=== PATIENT | female | born 1955 ===

== ENCOUNTER → 2023-02-06 15:37 | Outpatient (CLI) | payer MEDICARE, SELFPAY ==
--- NOTE | 2023-02-06 15:43 | DI.RAD.S_ITS ---
PROCEDURE: XR CHEST 2V INDICATIONS: cough TECHNIQUE: 2 views of the chest were acquired. COMPARISON: None. FINDINGS: Surgical changes and devices: None. Lungs and pleura: Lungs are clear. No pleural effusions or pneumothorax. Mediastinum: Mediastinal contours are normal. Heart size is normal. Bones and chest wall: No suspicious bony abnormalities. Soft tissues appear unremarkable. IMPRESSION: No acute cardiopulmonary abnormality is seen. Dictated by: Oral Rodriguez M.D. on 02/06/2023 at 16:30 Approved by: Oral Rodriguez M.D. on 02/06/2023 at 16:30
[2023-02-06 16:38] LABS: Add Manual Diff / Slide Review NO; Basophils Absolute Auto 100 /uL (0-100); Basophils Percent Auto 1.1 % (0-2); Eosinophils Absolute Auto 300 /uL (0-450); Eosinophils Percent Auto 3.9 % (2-4); Hemoglobin 12.2 g/dL (12.0-16.0); Lymphocytes Absolute Auto 1600 /uL (1100-4500); Lymphocytes Percent Auto 18.5 % (25-40); Mean Corpuscular HGB Conc 34.9 % (30-36); Mean Corpuscular Hemoglobin 33.4 PG (26-34); Monocytes Absolute Auto 900 /uL (0-900); Monocytes Percent Auto 9.9 % (3-14); Neutrophils Absolute Auto 5800 /uL (1500-7000); Neutrophils Percent Auto 66.6 % (50-75); Platelet Count 376 X10^3/uL (150-400); Red Blood Cell Count 3.65 X10^6/uL (4.0-5.2); Red Cell Distribution Width 13.1 % (11.6-14.8); White Blood Cell Count 8.7 X10^3/uL (4.5-11.0)
[2023-02-06 17:25] LABS: Alanine Aminotransferase 15 IU/L (<35); Albumin 4.1 g/dL (3.5-5.0); Albumin Globulin Ratio 1.2 (1.0-2.8); Alkaline Phosphatase 56 U/L (38-126); Aspartate Aminotransferase 24 IU/L (14-36); BUN Creatinine Ratio 19.7 (6-22); Bilirubin Total 0.4 mg/dL (0.2-1.3); Blood Urea Nitrogen 14 mg/dL (7-17); Carbon Dioxide 28 mmol/L (22-32); Chloride 100 mmol/L (98-107); Cholesterol 179 mg/dL (140-199); Estimated Glomerular Filt Rate > 60 mL/min (>60); Globulin 3.3 g/dL (1.7-4.1); Glucose 88 mg/dL (80-110); HDL Cholesterol 58 mg/dL (40-60); HEMOLYSIS < 15 (0-50); LDL Cholesterol Calculated 106 mg/dL (<100); Potassium 4.1 mmol/L (3.4-5.1); Sodium 134 mmol/L (137-145); Total Protein 7.4 g/dL (6.3-8.2); Triglycerides 73 mg/dL (35-150)
[2023-02-07 17:25] LABS: HIV 1 & 2 Ab/Ag 4th Gen Combo NEGATIVE (NEGATIVE); Hep C Virus Ab w/Reflex Quant NEGATIVE s/c (NEGATIVE)
[2023-02-08 20:35] LABS: Tissue Transglutaminase IgG <2 U/mL (0-5)
== END ==
PROVIDERS: PCP Family Medicine; Referring Provider Family Medicine; Visit Provider Family Medicine
DX: R05.3 Chronic cough (principal); Z13.6 Encounter for screening for cardiovascular disorders; K52.9 Noninfective gastroenteritis and colitis, unspecified; Z11.59 Encounter for screening for other viral diseases; Z11.4 Encounter for screening for human immunodeficiency virus [HIV]; Z87.891 Personal history of nicotine dependence; Z00.00 Encounter for general adult medical examination without abnormal findings
CPT/HCPCS: 36415; 71046; 80053; 80061; 83516; 85025; 86803; 87389

== ENCOUNTER → 2023-02-25 16:40 | Outpatient (CLI) | payer MEDICARE, SELFPAY ==
[2023-02-25 20:03] LABS: Occult Blood 1 Negative (Negative)
[2023-02-25 20:43] LABS: Clostridium Difficile Tox PCR Negative for C. diff (Negative)
[2023-03-02 14:36] LABS: Calprotectin, Stool 29 ug/g (0-120)
== END ==
PROVIDERS: PCP Family Medicine; Referring Provider Family Medicine; Visit Provider Family Medicine
DX: K52.9 Noninfective gastroenteritis and colitis, unspecified (principal)
CPT/HCPCS: 82270; 83993; 87045; 87177; 87493; 87899

== ENCOUNTER 2024-07-17 14:30 | Outpatient (RCR) | payer MEDICARE, MEDICAID, SELFPAY ==
--- NOTE | 2024-04-10 16:56 | ST.OPIE ---
Visit Care Team Role Provider Type Neri Sepulveda MD Family Provider Physician Primary Care Provider Specialty: Family Practice Obstetrics Address: [address] [facility], [place], [address] Email: [email or web address] Almaz Ross MD Attending Provider Physician Referring Provider Specialty: [facility] Practice Address: [address] [place] [address], [place], [address] Email: [email or web address] Speech-Language Pathology Initial Evaluation DEMAND GENERATION MANAGER Adult Cognitive Linguistic Eval Start: 04/10/24 15:40 Freq: Status: Active Protocol: Document 04/10/24 15:40 SS (Rec: 04/10/24 16:55 SS [id number]) Adult Cognitive Linguistic Evaluation Session Time Visit Start Time 14:25 Visit Stop Time 15:25 Total Visit Minutes 60 Visit Information Visit Number Initial evaluation Plan of Care Dates 04/10/24-07/08/24 Insurance Information Medicare (KX after 19 PT/ST visits) Referral Referring Provider Dr. Almaz Ross Reason for Referral Aphasia s/p CVA Setting Assessment Location Outpatient Care Visit Type Note Type Initial evaluation Next Note Type Next Note Type Treatment Note Patient Information Identification Type Name Patient History Kristen Andres is a 68 year-old female referred to this clinic for assessment for expressive nad receptive language function R frontal lobe CVA. She was hospitalized from through 02/29/2024 at [facility] in [place]. MRI reportedly showed a significant stroke with clot present per medical records. She was reportedly not very engaged with therapies and ultimately was discharged home with her , Tommy. Prior to the stroke, Kristen was highly independent with ADLs and IADLs and was involved in her community. 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 Though pt was diagnosed with global aphasia during hospitalization, her expressive and receptive language skills have improved over the past month per her ?s report. Minimal PMHs in records (vertigo only), though pt denies any neurological conditions or relevant medical history. Pt currently lives at home with her and is fairly independent with ADLs and has been completing IADLs with assistance/supervision from her as needed. 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 She was initially reluctant to participate, though agreeable to assessment given rationale. She participated in automatic speech and communication routines (greetings, small talk) and responded to yes/no and egocentric open-ended questions using syntactically correct structures, with occasional paraphasias, instances of anomia, and omission of words at the discourse level noted. Comprehension appeared to be a relative strength, though mild difficulty noted with more complex questions. Cognition informally assessed, with difficulty noted with sustained attention. Additionally, occasional emotional lability re: laughing noted, particularly when pt had difficulty responding during standardized assessment. Mental Status Alert,Responsive,Cooperative Informal Assessment Receptive Language Normal No Receptive Language Impairment(s) Comprehension of complex yes/ no questions,Following 3-step commands,Reading comprehension ,Comprehension of conversation ,Reading Expressive Language Normal No Expressive Language Impairment(s) Sentence closure/completion, Confrontation naming,Divergent naming,Expression of complex thoughts/ideas,Written expression Pragmatic Language Normal Yes Speech Normal Yes Cognition Normal No: Language function prioritized given support at home Cognitive Impairment(s) Attention,Short-term memory, Executive functioning,Problem solving,Thought organization, Safety awareness Formal Assessment Administration Complete Results Pt completed The Western Aphasia Battery-Revised (WAB-R ). The WAB-R aims to determine the presence, severity, and type of aphasia. Additionally, it aims to provide a comprehensive assessment of the pt?s language strengths and deficits in order to guide treatment and management. The WAB-R is made up of four subtests, each comprising sets of items that probe different language domains, vary in difficulty, and are scored with a graded system to maximize the informativeness of each item. From the four subtests, four summary measures are derived, which constitute an Aphasia Quotient , quantifying strengths and weaknesses across core language domains. The pt scored as follows: Spontaneous Speech Score 13/20 Auditory Verbal Comprehension Score 9.2/10 Repetition Score 8.8/10 Naming and Word Finding Score 6.8/10 Aphasia Quotient 75.6/100 indicative of mild-moderate aphasia Based on the WAB-R Aphasia Classification Criteria, pt presents with anomic aphasia. Findings/Results Language Function Mild-moderately impaired Cognitive Function Mildly impaired Findings Pt presented with mild- moderate expressive aphasia c/ b anomia, semantic paraphasias , and omission of words at the discourse level. Auditory comprehension was a strength, with pt demonstrate intact comprehension of yes/no questions and 1-2 step commands; breakdown occurred with 3 step commands and more complex questions/topics. Though not formally tested today, she also demonstrates agraphia and alexia per report , though appears to be mild in severity. Pt may have possible cognitive deficits in attention and executive function, though further testing is needed. Pt would benefit from DEMAND GENERATION MANAGER services targeting expressive and receptive language skills in order to enhance her ability to effectively communicate complex thoughts, ideas, opinions, and feelings during functional activities of daily life. Concomitant Factors Concomitant Factors Other (comment) Comment Anosagnosia Prognosis Prognosis Good Plan of Care Speech-Language Treatment Yes Frequency Once a week Duration 3 months Patient/Caregiver Education Patient expressed understanding of evaluation, Patient expressed agreement with goals and treatment plans Short Term Goals 1. Patient will implement the compensatory strategy of circumlocution in 80% of opportunities with minimal cueing to repair communication breakdowns in daily conversations. 2. Patient will produce 7 or more content words per utterance (as compared to baseline of 3) through skill and strategy practice in 80% of opportunities during functional conversation in order to enhance communicative effectiveness and confidence. 3. Patient will correctly name salient object in 80% of opportunities with minimal assistance in order to increase functional word retrieval in daily communication . Student Life Vice President Goals 1. The patient will participate in complex communication of thoughts, ideas, and opinions while utilizing compensatory strategies independently when appropriate across three sessions in order to effectively participate in daily activities. 2. The patient will demonstrate improved satisfaction with communication (baseline status self-rating +7/10) as a result of activity practice and personalized strategy development in speech therapy.
--- NOTE | 2024-04-10 16:57 | ST.OPPOC ---
Physical, Occupational & Speech Therapy At [facility] Visit Care Team Role Provider Type Neri Sepulveda MD Family Provider Physician Primary Care Provider Address: [address] [place], [address] Almaz Ross MD Attending Provider Physician Referring Provider Address: [address] [place] [address] B, [place], [address] Speech Pathology Plan of Care Plan of Care Dates 04/10/24-07/08/[address] Almaz Ross Patient History Kristen Andres is a 68 year-old female referred to this clinic for assessment for expressive nad receptive language function R frontal lobe CVA. She was hospitalized from 02/26/2024 through at [facility] in [place]. MRI reportedly showed a significant stroke with clot present per medical records. She was reportedly not very engaged with therapies and ultimately was discharged home with her , Tommy. Prior to the stroke, Kristen was highly independent with ADLs and IADLs and was involved in her community. 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 Though pt was diagnosed with global aphasia during hospitalization, her expressive and receptive language skills have improved over the past month per her ?s report. Minimal PMHs in records (vertigo only), though pt denies any neurological conditions or relevant medical history. Pt currently lives at home with her and is fairly independent with ADLs and has been completing IADLs with assistance/supervision from her as needed. Short Term Goals 1. Patient will implement the compensatory strategy of circumlocution in 80% of opportunities with minimal cueing to repair communication breakdowns in daily conversations. 2. Patient will produce 7 or more content words per utterance (as compared to baseline of 3) through skill and strategy practice in 80% of opportunities during functional conversation in order to enhance communicative effectiveness and confidence. 3. Patient will correctly name salient object in 80% of opportunities with minimal assistance in order to increase functional word retrieval in daily communication . Mortgage Analyst Goals 1. The patient will participate in complex communication of thoughts, ideas, and opinions while utilizing compensatory strategies independently when appropriate across three sessions in order to effectively participate in daily activities. 2. The patient will demonstrate improved satisfaction with communication (baseline status self-rating +7/10) as a result of activity practice and personalized strategy development in speech therapy. Comment: Electronically Signed by: CHICA Callahan 04/10/24 8138 If you are in agreement with this Plan of Care, please return a signed and dated copy. I have reviewed this Plan of Care and certify that the skilled therapy services above are required to meet the patient?s needs. Physician Signature Date Printed Name and Credentials Clinical Instructor Signature Printed Name and Credentials
--- NOTE | 2024-04-17 16:38 | ST.OPTN ---
Visit Care Team Role Provider Type Neri Sepulveda MD Family Provider Physician Primary Care Provider Address: [address] [place] [address], [address] Almaz Ross MD Attending Provider Physician Referring Provider Address: [address] [place] [address], [facility], [place], [address] SHELL SORTER Treatment Note SHELL SORTER Treatment Note Start: 04/10/24 15:40 Freq: Status: Active Protocol: Document 04/17/24 16:28 SS (Rec: 04/17/24 16:38 SS [id number]) Speech Pathology Treatment Note Session Time Visit Start Time 15:40 Visit Stop Time 16:30 Total Visit Minutes 50 Visit Information Visit Number 2 Plan of Care Dates 04/10/24-07/08/24 Insurance Information Medicare Setting Treatment Setting Outpatient Care Visit Type Note Type Treatment Note Next Note Type Next Note Type Treatment Note General Information Patient History Kristen Andres is a 68 year-old female referred to this clinic for assessment for expressive nad receptive language function R frontal lobe CVA. She was hospitalized from through 02/29/2024 at [facility] in [place]. MRI reportedly showed a significant stroke with clot present per medical records. She was reportedly not very engaged with therapies and ultimately was discharged home with her , Tommy. Prior to the stroke, Kristen was highly independent with ADLs and IADLs and was involved in her community. 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 Though pt was diagnosed with global aphasia during hospitalization, her expressive and receptive language skills have improved over the past month per her ?s report. Minimal PMHs in records (vertigo only), though pt denies any neurological conditions or relevant medical history. Stefano currently lives at home with her and is fairly independent with ADLs and has been completing IADLs with assistance/supervision from her as needed. Subjective Observations/Patient Presentation Kristen arrived to the session on time and was accompanied by her . She was engaged and motivated to participate in all session activities. Objective Short Term Goals 1. Patient will implement the compensatory strategy of circumlocution in 80% of opportunities with minimal cueing to repair communication breakdowns in daily conversations. 2. Patient will produce 7 or more content words per utterance (as compared to baseline of 3) through skill and strategy practice in 80% of opportunities during functional conversation in order to enhance communicative effectiveness and confidence. 3. Patient will correctly name salient object in 80% of opportunities with minimal assistance in order to increase functional word retrieval in daily communication . Snf Goals 1. The patient will participate in complex communication of thoughts, ideas, and opinions while utilizing compensatory strategies independently when appropriate across three sessions in order to effectively participate in daily activities. 2. The patient will demonstrate improved satisfaction with communication (baseline status self-rating +7/10) as a result of activity practice and personalized strategy development in speech therapy. Treatment Activities Introduced Semantic Feature Analysis to strengthen semantic networks and enhance pt's word retrieval. Additionally, implemented Response Elaboration Training targeting use of expanded utterances in order to improve communication effectiveness. Assessment Patient Response to Treatment Good Rehab Potential Good Impairments Identified Expressive language Progress Towards Goals Good Progress Assessment of Overall Progress Improving Assessment of Improvement Discussed functional communication since evaluation date. Pt?s reported that he has noticed steady improvement in word retrieval and verbal expression. He was highly supportive of Kristen during the session and was receptive to SHELL SORTER education and recommendations. Semantic Feature Analysis (SFA ) implemented to target anomia and use of circumlocution for improved word retrieval. The pt was provided with a visual graphic organizer with six categories (category/group, use, action, properties, location, and association) and was asked to generate words across the six categories for personally-relevant, functional words. She produced an average of 8 content words per target photo, increasing to 15+ words given semantic, phonemic, and gestural cueing. During naming tasks with picture card stimuli, pt accurately named 31/40 (77%) of words. She benefited from hierarchy of cueing, semantic cueing (category, use, location, physical attributes) , phonemic cueing, and orthographic cueing. She was able to accurately name 38/40 words given semantic and phonemic cueing, increasing to 40/40 given orthographic cueing (SHELL SORTER writing first syllable on whiteboard and cueing pt to read it aloud). Targeted verbal expression, content word retrieval, and response length with implementation of Response Elaboration Training (RET) in order to support generalization of expanded utterances across contexts and conversational partners. With open-ended picture stimuli, Kristen formed sentences with an average of 5 content words. SHELL SORTER implemented wh-questions ( ex: who, what, where, when) with the goal of improving response length and the pt increased to an average of 10+ content words. She benefited from SHELL SORTER shaping and modeling, as well as positive reinforcement during the task to improve verbal responses. Discussed progress with pt and spouse as well as recommended strategies for home at end of the session. Plan to follow- up in one week. Reviewed with Patient Goals,Progress Being Made,Home Exercise Program Patient/Caregiver Understanding Excellent Plan Amount of Therapy Recommended 3 Months Frequency of Treatment Once a Week Length of Session 30 Minutes Therapeutic Contents Client Education,Expressive Language Training,Fluency,Home Exercise Program Provided Patient/Caregiver Instruction Home Exercise Program,Plan of Care,Questions/Concerns Therapy Recommendations Continue with Current Program
--- NOTE | 2024-04-24 17:23 | ST.OPTN ---
Visit Care Team Role Provider Type Neri Sepulveda MD Family Provider Physician Primary Care Provider Address: [address] [place] [address], [id number] Almaz Ross MD Attending Provider Physician Referring Provider Address: [address] [place] [address], [facility], [place], [address] BILINGUAL INSTRUCTOR Treatment Note BILINGUAL INSTRUCTOR Treatment Note Start: 04/10/24 15:40 Freq: Status: Active Protocol: Document 04/24/24 17:11 SS (Rec: 04/24/24 17:23 SS [id number]) Speech Pathology Treatment Note Session Time Visit Start Time 16:05 Visit Stop Time 16:55 Total Visit Minutes 50 Visit Information Visit Number 3 Plan of Care Dates 04/10/24-07/08/24 Insurance Information Medicare Setting Treatment Setting Outpatient Care Visit Type Note Type Treatment Note Next Note Type Next Note Type Treatment Note General Information Patient History Kristen Andres is a 68 year-old female referred to this clinic for assessment for expressive nad receptive language function R frontal lobe CVA. She was hospitalized from through 02/29/2024 at [facility] in [place]. MRI reportedly showed a significant stroke with clot present per medical records. She was reportedly not very engaged with therapies and ultimately was discharged home with her , Tommy. Prior to the stroke, Kristen was highly independent with ADLs and IADLs and was involved in her community. 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 Though pt was diagnosed with global aphasia during hospitalization, her expressive and receptive language skills have improved over the past month per her ?s report. Minimal PMHs in records (vertigo only), though pt denies any neurological conditions or relevant medical history. Stefano currently lives at home with her and is fairly independent with ADLs and has been completing IADLs with assistance/supervision from her as needed. Subjective Observations/Patient Presentation Kristen arrived to the session on time and was accompanied by her sister. She was engaged and motivated to participate in all session activities. Objective Short Term Goals 1. Patient will implement the compensatory strategy of circumlocution in 80% of opportunities with minimal cueing to repair communication breakdowns in daily conversations. 2. Patient will produce 7 or more content words per utterance (as compared to baseline of 3) through skill and strategy practice in 80% of opportunities during functional conversation in order to enhance communicative effectiveness and confidence. 3. Patient will correctly name salient object in 80% of opportunities with minimal assistance in order to increase functional word retirval in daily communication . Rubber Vulcanizing Machine Operator Goals 1. The patient will participate in complex communication of thoughts, ideas, and opinions while utilizing compensatory strategies independnetly when appropriate across three sessions in order to effectively participate in daily activities. 2. The patient will demonstrate improved satisfaction with communication (baseline status self-rating +7/10) as a result of activity practice and personalized strategy development in speech therapy. Treatment Activities Implemented Semantic Feature Analysis to strengthen semantic networks and enhance pt's word retrieval. Additionally, implemented use of compensatory word-finding strategies during unstructured conversation in order to target verbal expression and word retrieval across a variety of contexts and communication partners. Assessment Patient Response to Treatment Good Rehab Potential Good Impairments Identified Expressive language Progress Towards Goals Good Progress Assessment of Overall Progress Improving Assessment of Improvement Pt?s sister reported concerns re: cognition, specifically memory, though stated pt is not willing to discuss this at this time. Pt?s family may be pursuing further assessment. BILINGUAL INSTRUCTOR discussed these concerns with pt and explained that changes in cognitive- communication function may be related to CVA, though pt became withdrawn and politely stated she did not wish to discuss these concerns. Semantic Feature Analysis (SFA ) implemented to target anomia and use of circumlocution for improved word retrieval. The pt was provided with a visual graphic organizer with six categories (category/group, use, action, properties, location, and association) and was asked to generate words across the six categories for personally-relevant, functional words. She produced an average of 13 content words per target photo, increasing to 2-+ words given semantic, phonemic, and orthographic cueing. Given initial prompt, she was able to provide a succinct and effective description of each target word using semantic features in 9/12 opportunities , increasing to 12/12 given reminder to use semantic features she had previously identified. During unstructured conversation, she was able to discuss various topics (e.g., hobbies, family, etc) with relative fluency. She demonstrated occasional hesitations, fillers, and generic words during moments of anomia, though was able to use similar/related words and circumlocution given initial reminder from BILINGUAL INSTRUCTOR. She is not yet independently utilizing trained strategies and requires min cueing to initiate use. She will benefit from reinforcement to independently use strategies in functional contexts to increase communication effectiveness and minimize communication breakdowns. Discussed progress with pt and sister as well as recommended strategies for home at end of the session. Plan to follow- up in one week. Reviewed with Patient Goals,Progress Being Made,Home Exercise Program Patient/Caregiver Understanding Excellent Plan Amount of Therapy Recommended 3 Months Frequency of Treatment Once a Week Length of Session 30 Minutes Therapeutic Contents Client Education,Expressive Language Training,Fluency,Home Exercise Program Provided Patient/Caregiver Instruction Home Exercise Program,Plan of Care,Questions/Concerns Therapy Recommendations Continue with Current Program
--- NOTE | 2024-05-01 16:10 | ST.OPTN ---
Visit Care Team Role Provider Type Neri Sepulveda MD Family Provider Physician Primary Care Provider Address: [address] [place] [address], [id number] Almaz Ross MD Attending Provider Physician Referring Provider Address: [address] [place] [address] B, [place], [address] CAR DELIVERER Treatment Note CAR DELIVERER Treatment Note Start: 04/10/24 15:40 Freq: Status: Active Protocol: Document 05/01/24 15:57 SS (Rec: 05/01/24 16:10 SS [id number]) Speech Pathology Treatment Note Session Time Visit Start Time 14:20 Visit Stop Time 15:00 Total Visit Minutes 40 Visit Information Visit Number 4 Plan of Care Dates 04/10/24-07/08/24 Insurance Information Medicare Setting Treatment Setting Outpatient Care Visit Type Note Type Treatment Note Next Note Type Next Note Type Treatment Note General Information Patient History Kristen Andres is a 68 year-old female referred to this clinic for assessment for expressive nad receptive language function R frontal lobe CVA. She was hospitalized from through 02/29/2024 at [facility] in [place]. MRI reportedly showed a significant stroke with clot present per medical records. She was reportedly not very engaged with therapies and ultimately was discharged home with her , Tommy. Prior to the stroke, Kristen was highly independent with ADLs and IADLs and was involved in her community. 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 Though pt was diagnosed with global aphasia during hospitalization, her expressive and receptive language skills have improved over the past month per her ?s report. Minimal PMHs in records (vertigo only), though pt denies any neurological conditions or relevant medical history. Stefano currently lives at home with her and is fairly independent with ADLs and has been completing IADLs with assistance/supervision from her as needed. Subjective Observations/Patient Presentation Kristen arrived to the session on time and was accompanied by her . She was engaged and motivated to participate in all session activities. Objective Short Term Goals 1. Patient will implement the compensatory strategy of circumlocution in 80% of opportunities with minimal cueing to repair communication breakdowns in daily conversations. 2. Patient will produce 7 or more content words per utterance (as compared to baseline of 3) through skill and strategy practice in 80% of opportunities during functional conversation in order to enhance communicative effectiveness and confidence. 3. Patient will correctly name salient object in 80% of opportunities with minimal assistance in order to increase functional word retrieval in daily communication . [facility] Goals 1. The patient will participate in complex communication of thoughts, ideas, and opinions while utilizing compensatory strategies independently when appropriate across three sessions in order to effectively participate in daily activities. 2. The patient will demonstrate improved satisfaction with communication (baseline status self-rating +7/10) as a result of activity practice and personalized strategy development in speech therapy. Treatment Activities Implemented modified Semantic Feature Analysis to strengthen semantic networks and enhance pt's word retrieval with use of visual aid as a reference. Additionally, implemented use of wh-questions during structured photo description task and in unstructured conversation targeting increased grammatical complexity given overall reduced utterance length. Assessment Patient Response to Treatment Good Rehab Potential Good Impairments Identified Expressive language Progress Towards Goals Good Progress Assessment of Overall Progress Improving Assessment of Improvement Continued to implement SFA principles and circumlocution across word finding in structured naming task. Provided pt with a written structured task re: given an object, pt verbalize various characteristics (color, size, material, category, function, where it?s found, similar items, parts, first sound). Pt needed min cues to refer to written support to verbalize semantic features. She produced an average of 6 content words per target photo , increasing to 10+ words given semantic, phonemic, and orthographic cueing. She named 16/20 (80%) of objects accurately, increasing to 20/ 20 (100%) given semantic, phonemic, and occasional orthographic cueing. Targeted verbal expression, content word retrieval, and response length with implementation of Response Elaboration Training (RET) with open-ended picture stimuli. She formed sentences with an average of x5 content words. CAR DELIVERER implemented wh- questions (ex: who, what, where, when) with the goal of improving response length and the patient increased to an average of x15+ content words. In conversation, she benefited from cueing to utilize circumlocution (e.g., ?use a similar/related word? or ?can you tell me about it?? ). She also benefited from use of wh-questions intermittently to increased response length and produce longer and more complex utterances. She is not yet independently utilizing word-finding strategies or producing longer and more complex utterances and benefits from cueing, though is able to use strategies effectively given cueing from CAR DELIVERER and . As her awareness of her deficits continues to increase , she has benefited from frequent positive encouragement and discussion of her progress. Discussed progress with pt and and provided home practice at end of the session. Reviewed with Patient Goals,Progress Being Made,Home Exercise Program Patient/Caregiver Understanding Excellent Plan Amount of Therapy Recommended 3 Months Frequency of Treatment Once a Week Length of Session 30 Minutes Therapeutic Contents Client Education,Expressive Language Training,Fluency,Home Exercise Program Provided Patient/Caregiver Instruction Home Exercise Program,Plan of Care,Questions/Concerns Therapy Recommendations Continue with Current Program
--- NOTE | 2024-05-08 16:48 | ST.OPTN ---
Visit Care Team Role Provider Type Neri Sepulveda MD Family Provider Physician Primary Care Provider Address: [address] [place] [address], [id number] Almaz Ross MD Attending Provider Physician Referring Provider Address: [address] [place] [address] B, [place], [address] DELIVERY PERSON Treatment Note DELIVERY PERSON Treatment Note Start: 04/10/24 15:40 Freq: Status: Active Protocol: Document 05/08/24 16:16 SS (Rec: 05/08/24 16:48 SS [id number]) Speech Pathology Treatment Note Session Time Visit Start Time 14:10 Visit Stop Time 14:50 Total Visit Minutes 40 Visit Information Visit Number 5 Plan of Care Dates 04/10/24-07/08/24 Insurance Information Medicare Setting Treatment Setting Outpatient Care Visit Type Note Type Treatment Note Next Note Type Next Note Type Treatment Note General Information Patient History Kristen Andres is a 68 year-old female referred to this clinic for assessment for expressive nad receptive language function R frontal lobe CVA. She was hospitalized from through 02/29/2024 at [facility] in [place]. MRI reportedly showed a significant stroke with clot present per medical records. She was reportedly not very engaged with therapies and ultimately was discharged home with her , Tommy. Prior to the stroke, Kristen was highly independent with ADLs and IADLs and was involved in her community. 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 Though pt was diagnosed with global aphasia during hospitalization, her expressive and receptive language skills have improved over the past month per her ?s report. Minimal PMHs in records (vertigo only), though pt denies any neurological conditions or relevant medical history. Stefano currently lives at home with her and is fairly independent with ADLs and has been completing IADLs with assistance/supervision from her as needed. Subjective Observations/Patient Presentation Kristen arrived to the session on time and was accompanied by her . She was engaged and motivated to participate in all session activities. Objective Short Term Goals 1. Patient will implement the compensatory strategy of circumlocution in 80% of opportunities with minimal cueing to repair communication breakdowns in daily conversations. 2. Patient will produce 7 or more content words per utterance (as compared to baseline of 3) through skill and strategy practice in 80% of opportunities during functional conversation in order to enhance commuicative effecitvness and confidance. 3. Patient will correctly name salient object in 80% of opportunities with minimal assistance in order to increase functional word retirval in daily communication . Material Control Supervisor Goals 1. The patient will participate in complex communication of thoughts, ideas, and opinions while utilizing compensatory strategies independnetly when appropriate across three sessions in order to effectively participate in daily activities. 2. The patient will demonstrate improved satisfaction with communication (baseline status self-rating +7/10) as a result of activity practice and personalized strategy development in speech therapy. Treatment Activities Implemented modified Semantic Feature Analysis to strengthen semantic networks and enhance pt's word retrieval. Introduced use of carrier phrases and category sheet to scaffold task. Assessment Patient Response to Treatment Good Rehab Potential Good Impairments Identified Expressive language Progress Towards Goals Good Progress Assessment of Overall Progress Improving Assessment of Improvement Pt?s reported that he is having new concerns about pt?s memory in the last week or two. They have an appointment with her PCP next month. Discussed DELIVERY PERSON role in cognitive-communication, though plan to continue to focus on expressive and receptive language as it seems that potential memory difficulties that is describing have to do with reduced receptive language skills rather than cognition. Informally, pt seems to have good recall of details from prior sessions. Will continue to monitor concerns in following sessions and re- assess as needed. Provided education re: compensatory strategies that pt?s can implement given pt?s limited awareness of her communication challenges, including using simple and straight forward language, providing main idea first, asking yes/no questions rather than open-ended questions, giving pt time to respond, and cueing pt to use alternative strategies. Modeled use of strategies throughout the session with expressing understanding. May implement Conversation Partner Training and Conversational Coaching in following sessions if pt and are receptive. Continued to implement SFA principles and circumlocution across word finding in structured naming task. Initiated use of two visual aids today: 1) Carrier phrases , such as ?it?s a type of _?, ?You can find it at _?, and ? you can/it can?. 2) Categories visual chart. Pt was able to describe items with at least two descriptors in 60% of opportunities independently. For 3 descriptors, she was able to do so with 23% accuracy independently. Accuracy increased with DELIVERY PERSON providing semantic, phonemic, and orthographic cueing as well as use of gestures. Pt benefitted from use of categories visual chart today to help identify categories as she had significant difficulty identifying categories and was unable to produce names of categories without mod-max cueing. Kristen seemed to have more difficulty today with word- finding and required increased cueing, though has a cold, which may contribute to her performance. She also demonstrated limited awareness when she was having difficulty during tasks and did not attempt to continue attempting to find words as she had done in prior sessions . Discussed progress with pt and and provided home practice at end of the session . Reviewed with Patient Goals,Progress Being Made,Home Exercise Program Patient/Caregiver Understanding Excellent Plan Amount of Therapy Recommended 3 Months Frequency of Treatment Once a Week Length of Session 30 Minutes Therapeutic Contents Client Education,Expressive Language Training,Fluency,Home Exercise Program Provided Patient/Caregiver Instruction Home Exercise Program,Plan of Care,Questions/Concerns Therapy Recommendations Continue with Current Program
--- NOTE | 2024-05-15 17:18 | ST.OPTN ---
Visit Care Team Role Provider Type Neri Sepulveda MD Family Provider Physician Primary Care Provider Address: [address] [place] [address], [id number] Almaz Ross MD Attending Provider Physician Referring Provider Address: [address] [place] [address], [facility] [place] [facility], [place], [address] WAGE HAND Treatment Note WAGE HAND Treatment Note Start: 04/10/24 15:40 Freq: Status: Active Protocol: Document 05/15/24 17:06 SS (Rec: 05/15/24 17:18 SS [id number]) Speech Pathology Treatment Note Session Time Visit Start Time 14:32 Visit Stop Time 15:10 Total Visit Minutes 38 Visit Information Visit Number 6 Plan of Care Dates 04/10/24-07/08/24 Insurance Information Medicare Setting Treatment Setting Outpatient Care Visit Type Note Type Treatment Note Next Note Type Next Note Type Treatment Note General Information Patient History Kristen Andres is a 68 year-old female referred to this clinic for assessment for expressive nad receptive language function R frontal lobe CVA. She was hospitalized from through 02/29/2024 at [facility] in [place]. MRI reportedly showed a significant stroke with clot present per medical records. She was reportedly not very engaged with therapies and ultimately was discharged home with her , Tommy. Prior to the stroke, Kristen was highly independent with ADLs and IADLs and was involved in her community. 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 Though pt was diagnosed with global aphasia during hospitalization, her expressive and receptive language skills have improved over the past month per her ?s report. Minimal PMHs in records (vertigo only), though pt denies any neurological conditions or relevant medical history. Stefano currently lives at home with her and is fairly independent with ADLs and has been completing IADLs with assistance/supervision from her as needed. Subjective Observations/Patient Presentation Kristen arrived to the session on time and was accompnied by her . She was engaged and motivated to participate in all session activities. Objective Short Term Goals 1. Patient will implement the compensatory strategy of circumlocution in 80% of opportunities with minimal cueing to repair communication breakdowns in daily conversations. 2. Patient will produce 7 or more content words per utterance (as compared to baseline of 3) through skill and strategy practice in 80% of opportunities during functional conversation in order to enhance commuicative effecitvness and confidance. 3. Patient will correctly name salient object in 80% of opportunities with minimal assistance in order to increase functional word retirval in daily communication . Nursing Home Goals 1. The patient will participate in complex communication of thoughts, ideas, and opinions while utilizing compensatory strategies independnetly when appropriate across three sessions in order to effectively participate in daily activities. 2. The patient will demonstrate improved satisfaction with communication (baseline status self-rating +7/10) as a result of activity practice and personalized strategy development in speech therapy. Treatment Activities Implemented modified Semantic Feature Analysis to in order to strengthen semantic connections between related concepts. By generating words and phrases that are related to the target word and increasing activation of the entire surrounding semantic network, the pt is more likely to be able to access and produce target words with reduced instances of anomia. Continued use of written carrier phrases and category sheet to scaffold task. Assessment Patient Response to Treatment Good Rehab Potential Good Impairments Identified Expressive language Progress Towards Goals Good Progress Assessment of Overall Progress Improving Assessment of Improvement Continued to implement SFA principles and circumlocution across word finding in structured naming task. Continued use of visual aid for carrier phrases and categories visual chart. Pt produced an average of 4 content words per target word across 6 trials, increasing to average of 14 content words given min-mod semantic, phonemic, orthographic, and gestural cueing. Pt continued to benefit from use of categories visual chart today to help identify categories as she had significant difficulty identifying categories (i.e., repeating the target word rather than producing the overall category ). Additionally, she benefitted from cueing to produce properties today and befitted from written cueing ( e.g., ?what does it look like? ?, ?what is it made out of??, etc) as well multiple choice. She was more engaged with this task today. Her reported that her anosognosia (limited awareness of her deficits) limits practice at home as she is not always interested in implementing strategies at home with ?s cueing. Discussed hierarchy of cueing for word- finding that will allow pt?s to provide appropriate cueing and fade it as needed while allowing pt to be as independent as possible and maintain communicative confidence. Discussed progress with pt and and provided home practice at end of the session. Plan to continue at frequency of once a week given pt progress and report. Reviewed with Patient Goals,Progress Being Made,Home Exercise Program Patient/Caregiver Understanding Excellent Plan Amount of Therapy Recommended 3 Months Frequency of Treatment Once a Week Length of Session 30 Minutes Therapeutic Contents Client Education,Expressive Language Training,Fluency,Home Exercise Program Provided Patient/Caregiver Instruction Home Exercise Program,Plan of Care,Questions/Concerns Therapy Recommendations Continue with Current Program
--- NOTE | 2024-05-22 16:59 | ST.OPTN ---
Visit Care Team Role Provider Type Neri Sepulveda MD Family Provider Physician Primary Care Provider Address: [address] [place] [address], [id number] Almaz Ross MD Attending Provider Physician Referring Provider Address: [address] [place] [address], [facility], [place], [address] PATIENT FINANCIAL ADVOCATE Treatment Note PATIENT FINANCIAL ADVOCATE Treatment Note Start: 04/10/24 15:40 Freq: Status: Active Protocol: Document 05/22/24 16:15 SS (Rec: 05/22/24 16:15 SS [id number]) Speech Pathology Treatment Note Session Time Visit Start Time 14:30 Visit Stop Time 15:07 Total Visit Minutes 37 Visit Information Visit Number 7 Plan of Care Dates 04/10/24-07/08/24 Insurance Information Medicare Setting Treatment Setting Outpatient Care Visit Type Note Type Treatment Note Next Note Type Next Note Type Treatment Note General Information Patient History Kristen Andres is a 68 year-old female referred to this clinic for assessment for expressive nad receptive language function R frontal lobe CVA. She was hospitalized from through 02/29/2024 at [facility] in [place]. MRI reportedly showed a significant stroke with clot present per medical records. She was reportedly not very engaged with therapies and ultimately was discharged home with her , Tommy. Prior to the stroke, Kristen was highly independent with ADLs and IADLs and was involved in her community. 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 Though pt was diagnosed with global aphasia during hospitalization, her expressive and receptive language skills have improved over the past month per her ?s report. Minimal PMHs in records (vertigo only), though pt denies any neurological conditions or relevant medical history. Stefano currently lives at home with her and is fairly independent with ADLs and has been completing IADLs with assistance/supervision from her as needed. Subjective Observations/Patient Presentation Kristen arrived to the session on time and was accompnied by her . She was engaged and motivated to participate in all session activities. Objective Short Term Goals 1. Patient will implement the compensatory strategy of circumlocution in 80% of opportunities with minimal cueing to repair communication breakdowns in daily conversations. 2. Patient will produce 7 or more content words per utterance (as compared to baseline of 3) through skill and strategy practice in 80% of opportunities during functional conversation in order to enhance commuicative effecitvness and confidance. 3. Patient will correctly name salient object in 80% of opportunities with minimal assistance in order to increase functional word retirval in daily communication . [facility] Goals 1. The patient will participate in complex communication of thoughts, ideas, and opinions while utilizing compensatory strategies independnetly when appropriate across three sessions in order to effectively participate in daily activities. 2. The patient will demonstrate improved satisfaction with communication (baseline status self-rating +7/10) as a result of activity practice and personalized strategy development in speech therapy. Treatment Activities Continued to implement modified Semantic Feature Analysis to in order to strengthen semantic connections between related concepts. By generating words and phrases that are related to the target word and increasing activation of the entire surrounding semantic network, the pt is more likely to be able to access and produce target words with reduced instances of anomia. Continued use of written carrier phrases and category sheet to scaffold task. Continued to implement circumlocution in conversation when pt demonstrated instances of anomia. Assessment Patient Response to Treatment Good Rehab Potential Good Impairments Identified Expressive language Progress Towards Goals Good Progress Assessment of Overall Progress Improving Assessment of Improvement Pt?s reported that they have been utilizing principles of SFA at home to describe everyday objects and he has noticed an increased ability in pt naming and describing items that she previously had difficulty with . He continues to be concerned about her memory. He reported that pt did not recognize one of her sons until she heard his voice, which is unusual for her. Pt and family agreeable to focus on expressive language for now as it is most pertinent for her quality of life. Pt is scheduled to see PCP re: these concerns next month. Referral to neurology may be recommended at that time given pt presentation. Continued to implement SFA principles and circumlocution across word finding in structured naming task. Continued use of visual aid for carrier phrases and categories visual chart. Pt produced an average of 5-6 content words per target word across 6 trials, increasing to average of 15+ content words given mod-max semantic, phonemic, orthographic, and phrase completion. Pt benefited from use of categories visual chart, phrase completion, and antonyms. In conversation, she demonstrated frequent instances of anomia and required consistent cueing from PATIENT FINANCIAL ADVOCATE or to describe target word. She benefited from frequent positive encouragement as she continues to have difficulty with anosognosia and does not persistently attempt to find the correct word by herself. Discussed progress with pt and and provided home practice at end of the session . Plan to continue at frequency of once a week given pt progress and report with treatment potentially including memory strategies if pt and would like to begin addressing these areas of concern. Reviewed with Patient Goals,Progress Being Made,Home Exercise Program Patient/Caregiver Understanding Excellent Plan Amount of Therapy Recommended 3 Months Frequency of Treatment Once a Week Length of Session 30 Minutes Therapeutic Contents Client Education,Expressive Language Training,Fluency,Home Exercise Program Provided Patient/Caregiver Instruction Home Exercise Program,Plan of Care,Questions/Concerns Therapy Recommendations Continue with Current Program
--- NOTE | 2024-05-29 16:15 | ST.OPTN ---
Visit Care Team Role Provider Type Neri Sepulveda MD Family Provider Physician Primary Care Provider Address: [address] [place] [address], [id number] Almaz Ross MD Attending Provider Physician Referring Provider Address: [address] [place] [address], [facility], [place], [address] HELP DESK ASSOCIATE Treatment Note HELP DESK ASSOCIATE Treatment Note Start: 04/10/24 15:40 Freq: Status: Active Protocol: Document 05/29/24 16:06 SS (Rec: 05/29/24 16:15 SS [id number]) Speech Pathology Treatment Note Session Time Visit Start Time 14:25 Visit Stop Time 15:10 Total Visit Minutes 45 Visit Information Visit Number 8 Plan of Care Dates 04/10/24-07/08/24 Insurance Information Medicare Setting Treatment Setting Outpatient Care Visit Type Note Type Treatment Note Next Note Type Next Note Type Treatment Note General Information Patient History Kristen Andres is a 68 year-old female referred to this clinic for assessment for expressive nad receptive language function R frontal lobe CVA. She was hospitalized from through 02/29/[address] [facility] in [place]. MRI reportedly showed a significant stroke with clot present per medical records. She was reportedly not very engaged with therapies and ultimately was discharged home with her , Tommy. Prior to the stroke, Kristen was highly independent with ADLs and IADLs and was involved in her community. 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 Though pt was diagnosed with global aphasia during hospitalization, her expressive and receptive language skills have improved over the past month per her ?s report. Minimal PMHs in records (vertigo only), though pt denies any neurological conditions or relevant medical history. Stefano currently lives at home with her and is fairly independent with ADLs and has been completing IADLs with assistance/supervision from her as needed. Subjective Observations/Patient Presentation Kristen arrived to the session on time and was accompnied by her . She was engaged and motivated to participate in all session activities. Objective Short Term Goals 1. Patient will implement the compensatory strategy of circumlocution in 80% of opportunities with minimal cueing to repair communication breakdowns in daily conversations. 2. Patient will produce 7 or more content words per utterance (as compared to baseline of 3) through skill and strategy practice in 80% of opportunities during functional conversation in order to enhance commuicative effecitvness and confidance. 3. Patient will correctly name salient object in 80% of opportunities with minimal assistance in order to increase functional word retirval in daily communication . [facility] Goals 1. The patient will participate in complex communication of thoughts, ideas, and opinions while utilizing compensatory strategies independnetly when appropriate across three sessions in order to effectively participate in daily activities. 2. The patient will demonstrate improved satisfaction with communication (baseline status self-rating +7/10) as a result of activity practice and personalized strategy development in speech therapy. Treatment Activities Continued SFA/description task with HELP DESK ASSOCIATE providing cues to complete. Practiced description strategy with use of visual aid for semantic features (e.g., what does it look like? Location/place, what do you use it for? Etc) and carrier phrases to scaffold task. Continued to implement circumlocution in conversation when pt demonstrated instances of anomia to promote generalization and carryover. Assessment Patient Response to Treatment Good Rehab Potential Good Impairments Identified Expressive language Progress Towards Goals Good Progress Assessment of Overall Progress Improving Assessment of Improvement During naming/description of everyday objects task, pt required mod-max verbal and phonemic cues to complete description again this session . Pt occasionally became confused by complex directions , and benefitted from use of simplified verbal instructions . Continued use of visual aid for semantic features and carrier phrases. Pt was able to name 52% of target words, increasing to 94% given mod- max cueing and reference to visual aid. Pt produced an average of 5-6 content words per target word across 6 trials, increasing to average of 15+ content words given mod -max semantic, phonemic, gesture, and phrase completion . In conversation, she demonstrated frequent instances of anomia and required consistent cueing as she tended to try to move on in the conversation without being understood fully. She continues to benefit from frequent positive encouragement and cueing hierarchy for word-finding to increase her confidence and ability to persist in finding target words despite having difficulty. Discussed progress with pt and and provided home practice at end of the session targeting use of categories and functional word-finding. Plan to continue at frequency of once a week given pt progress and report. Reviewed with Patient Goals,Progress Being Made,Home Exercise Program Patient/Caregiver Understanding Excellent Plan Amount of Therapy Recommended 3 Months Frequency of Treatment Once a Week Length of Session 30 Minutes Therapeutic Contents Client Education,Expressive Language Training,Fluency,Home Exercise Program Provided Patient/Caregiver Instruction Home Exercise Program,Plan of Care,Questions/Concerns Therapy Recommendations Continue with Current Program
--- NOTE | 2024-06-05 15:59 | ST.OPTN ---
Visit Care Team Role Provider Type Neri Sepulveda MD Family Provider Physician Primary Care Provider Address: [address] [place] [address], [id number] Almaz Ross MD Attending Provider Physician Referring Provider Address: [address] [place] [address], [facility], [place], [address] CONSUMER ATTORNEY Treatment Note CONSUMER ATTORNEY Treatment Note Start: 04/10/24 15:40 Freq: Status: Active Protocol: Document 06/05/24 15:49 SS (Rec: 06/05/24 15:59 SS [id number]) Speech Pathology Treatment Note Session Time Visit Start Time 14:20 Visit Stop Time 15:05 Total Visit Minutes 45 Visit Information Visit Number 9 Plan of Care Dates 04/10/24-07/08/24 Insurance Information Medicare Setting Treatment Setting Outpatient Care Visit Type Note Type Treatment Note Next Note Type Next Note Type Treatment Note General Information Patient History Kristen Andres is a 68 year-old female referred to this clinic for assessment for expressive nad receptive language function R frontal lobe CVA. She was hospitalized from through 02/29/2024 at [facility] in [place]. MRI reportedly showed a significant stroke with clot present per medical records. She was reportedly not very engaged with therapies and ultimately was discharged home with her , Tommy. Prior to the stroke, Kristen was highly independent with ADLs and IADLs and was involved in her community. 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 Though pt was diagnosed with global aphasia during hospitalization, her expressive and receptive language skills have improved over the past month per her ?s report. Minimal PMHs in records (vertigo only), though pt denies any neurological conditions or relevant medical history. Stefano currently lives at home with her and is fairly independent with ADLs and has been completing IADLs with assistance/supervision from her as needed. Subjective Observations/Patient Presentation Kristen arrived to the session on time and was accompnied by her , Tommy. She was engaged and motivated to participate in all session activities. Objective Short Term Goals 1. Patient will implement the compensatory strategy of circumlocution in 80% of opportunities with minimal cueing to repair communication breakdowns in daily conversations. 2. Patient will produce 7 or more content words per utterance (as compared to baseline of 3) through skill and strategy practice in 80% of opportunities during functional conversation in order to enhance commuicative effecitvness and confidance. 3. Patient will correctly name salient object in 80% of opportunities with minimal assistance in order to increase functional word retirval in daily communication . Detention Goals 1. The patient will participate in complex communication of thoughts, ideas, and opinions while utilizing compensatory strategies independnetly when appropriate across three sessions in order to effectively participate in daily activities. 2. The patient will demonstrate improved satisfaction with communication (baseline status self-rating +7/10) as a result of activity practice and personalized strategy development in speech therapy. Treatment Activities Continued SFA/description task with CONSUMER ATTORNEY providing cues to complete. Practiced description strategy with use of visual aid for semantic features (e.g., what does it look like? Location/place, what do you use it for? Etc) and carrier phrases to scaffold task. Continued to implement circumlocution and graded cueing in conversation when pt demonstrated instances of anomia to promote generalization and carryover. Assessment Patient Response to Treatment Good Rehab Potential Good Impairments Identified Expressive language Progress Towards Goals Good Progress Assessment of Overall Progress Improving Assessment of Improvement During naming/description of everyday objects task, pt required min-mod verbal and phonemic cues to utilize trained compensatory strategies. Continued use of visual aid for semantic features and carrier phrases ( e.g., ?it?s a type of __?, ? you can/it can __?, etc). Pt was able to name 75% of target words independently, increasing to 87% given cueing reference visual aid and CONSUMER ATTORNEY prompting pt to identify semantic features. Given cueing to utilize principles of SFA and phonemic cueing, pt was able to name 100% of target words. Given initial prompt and carrier phrase, she is able to produce at least 1 -2 content words per semantic feature. Of note, she briefly hesitated while naming some of the words, though was able to cue herself with use of circumlocution (e.g., ?it?s a drink. It?s lemony. Oh it?s a lemonade?). In conversation, she demonstrated occasional instances of anomia with content words, though had the most difficulty with names and numbers. She benefited from semantic and phonemic cueing to retrieve target words. Pt was more persistent today during moments of communication breakdown and was more receptive to graded cueing from CONSUMER ATTORNEY and in comparison to prior sessions. Overall, good progress with increased ability to utilize compensatory strategies more independently as well as overall awareness of word- finding difficulty. Discussed progress with pt and and educated re: functional ways to incorporate word- finding during daily activities (e.g., grocery shopping, looking out on drives, etc). Plan to continue at frequency of once a week given pt progress and report. Progress note due next visit. Reviewed with Patient Goals,Progress Being Made,Home Exercise Program Patient/Caregiver Understanding Excellent Plan Amount of Therapy Recommended 3 Months Frequency of Treatment Once a Week Length of Session 30 Minutes Therapeutic Contents Client Education,Expressive Language Training,Fluency,Home Exercise Program Provided Patient/Caregiver Instruction Home Exercise Program,Plan of Care,Questions/Concerns Therapy Recommendations Continue with Current Program
--- NOTE | 2024-06-19 15:53 | ST.OPTN ---
Visit Care Team Role Provider Type Neri Sepulveda MD Family Provider Physician Primary Care Provider Address: [address] [place] [address], [id number] Almaz Ross MD Attending Provider Physician Referring Provider Address: [address] [place] [address], [facility], [place], [address] ENGINEERING ILLUSTRATOR Treatment Note ENGINEERING ILLUSTRATOR Treatment Note Start: 04/10/24 15:40 Freq: Status: Active Protocol: Document 06/19/24 15:28 SS (Rec: 06/19/24 15:53 SS [id number]) Speech Pathology Treatment Note Session Time Visit Start Time 14:33 Visit Stop Time 15:15 Total Visit Minutes 42 Visit Information Visit Number 10 Plan of Care Dates 04/10/24-07/08/24 Insurance Information Medicare Setting Treatment Setting Outpatient Care Visit Type Note Type Treatment Note Next Note Type Next Note Type Treatment Note General Information Patient History Kristen Andres is a 68 year-old female referred to this clinic for assessment for expressive nad receptive language function R frontal lobe CVA. She was hospitalized from through 02/29/2024 at [facility] in [place]. MRI reportedly showed a significant stroke with clot present per medical records. She was reportedly not very engaged with therapies and ultimately was discharged home with her , Tommy. Prior to the stroke, Kristen was highly independent with ADLs and IADLs and was involved in her community. 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 Though pt was diagnosed with global aphasia during hospitalization, her expressive and receptive language skills have improved over the past month per her ?s report. Minimal PMHs in records (vertigo only), though pt denies any neurological conditions or relevant medical history. Stefano currently lives at home with her and is fairly independent with ADLs and has been completing IADLs with assistance/supervision from her as needed. Subjective Observations/Patient Presentation Kristen arrived to the session on time and was accompnied by her , Tommy. She was engaged and motivated to participate in all session activities. Objective Short Term Goals 1. Patient will implement the compensatory strategy of circumlocution in 80% of opportunities with minimal cueing to repair communication breakdowns in daily conversations. 06/19/24: Continue goal. Pt only occasionally utilizes circumlocution in structured speech tasks and conversation independently. Given min-mod cueing, she is able to utilize circumlocution effectively and retrieve target word. 2. Patient will produce 7 or more content words per utterance (as compared to baseline of 3) through skill and strategy practice in 80% of opportunities during functional conversation in order to enhance communicative effectiveness and confidence. 06/19/24: Continue goal. Pt produces an average of 7+ content words in structured tasks, increasing to 10+ given semantic and phonemic cueing. However, in conversation, she continues to produce short utterances and frequently uses generic/nonspecific terms. She is able to increase utterance length and retrieve target words given cueing to utilize circumlocution and wh- questions, though not independently yet. 3. Patient will correctly name salient object in 80% of opportunities with minimal assistance in order to increase functional word retrieval in daily communication. 06/19/24: Continue goal. Pt is able to name target words in 56-75% of opportunities, increasing to 87-96% given semantic and phonemic cueing as well as SFA visual aid in last two sessions. She is more persistent when trying to retrieve the word and occasionally uses circumlocution independently. Senior Instrumentation Engineer Goals 1. The patient will participate in complex communication of thoughts, ideas, and opinions while utilizing compensatory strategies independently when appropriate across three sessions in order to effectively participate in daily activities. 06/19/24: Goal progressing; continue. 2. The patient will demonstrate improved satisfaction with communication (baseline status self-rating +7/10) as a result of activity practice and personalized strategy development in speech therapy. 06/19/24: Goal progressing; continue Treatment Activities Discussed recent PCP visit and recommendations. Response Elaboration Training targeting use of expanded utterances in order to improve word retrieval and grammatical complexity. Structured naming activity with principles of SFA as needed. Continued use of visual aid for semantic features (e.g., what does it look like? Location/place, what do you use it for? etc) and carrier phrases to scaffold task. Continued to implement circumlocution and graded cueing in conversation when pt demonstrated instances of anomia to promote generalization and carryover. Completed progress note. Assessment Patient Response to Treatment Good Rehab Potential Good Impairments Identified Expressive language Progress Towards Goals Good Progress Assessment of Overall Progress Improving Assessment of Improvement Per PCP report, pt scored 7/30 on the SLUMS, indicating dementia. Referrals to neuropsychologist and neurology for in-depth testing and formal diagnosis were made. Pt and pt?s expressed that they would like to continue to focus on language skills in treatment for now, and potentially transition to targeting cognition after neurology and neuropsych assessment. ENGINEERING ILLUSTRATOR provided education re: scope of practice covering cognition as well as potential therapy focus and functional applications if pt and were interested in further pursuing this. They expressed understanding. During naming/description of everyday objects task, pt required min-mod verbal and phonemic cues to utilize trained compensatory strategies. Continued use of visual aid for semantic features and carrier phrases ( e.g., ?it?s a type of __?, ? you can/it can __?, etc). Pt was able to name 56% of target words independently, increasing to 96% given cueing reference visual aid and ENGINEERING ILLUSTRATOR prompting pt to identify semantic features. Targeted verbal expression, content word retrieval, and response length with implementation of Response Elaboration Training (RET) in order to support generalization of expanded utterances across contexts and conversational partners. With open-ended photo stimuli, pt formed sentences with an average of 7 content words. ENGINEERING ILLUSTRATOR implemented wh-questions ( ex: who, what, where, when) and semantic/phonemic cueing with the goal of improving response length and word retrieval and the pt increased to an average of 12+ content words. In conversation, pt intermittently utilized nonspecific and generic terms during instances of anomia. She benefited from semantic and phonemic cueing to retrieve target words, though continued to have difficulty retrieving words without cueing. Of note, her response latency has decreased from prior sessions. Discussed progress with pt and and provided structured and functional daily home practice . Progress note completed. Reviewed with Patient Goals,Progress Being Made,Home Exercise Program Patient/Caregiver Understanding Excellent Plan Amount of Therapy Recommended 3 Months Frequency of Treatment Once a Week Length of Session 30 Minutes Therapeutic Contents Client Education,Expressive Language Training,Fluency,Home Exercise Program Provided Patient/Caregiver Instruction Home Exercise Program,Plan of Care,Questions/Concerns Therapy Recommendations Continue with Current Program
--- NOTE | 2024-06-19 16:10 | ST.PROG ---
Visit Care Team Role Provider Type Neri Sepulveda MD Family Provider Physician Primary Care Provider Address: [address] [place] [address], [address] Almaz Ross MD Attending Provider Physician Referring Provider Address: [address] [place] [address] B, [place], [address] HUMID SYSTEM OPERATOR Progress Note HUMID SYSTEM OPERATOR Treatment Note Start: 04/10/24 15:40 Freq: Status: Active Protocol: Document 06/19/24 15:54 SS (Rec: 06/19/24 16:10 SS [id number]) Speech Pathology Treatment Note Visit Information Visit Number 10 Plan of Care Dates 04/10/24-07/08/24 Insurance Information Medicare Setting Treatment Setting Outpatient Care Visit Type Note Type Progress Note Next Note Type Next Note Type Treatment Note General Information Patient History Kristen Andres is a 68 year-old female referred to this clinic for assessment for expressive nad receptive language function R frontal lobe CVA. She was hospitalized from through 02/29/[address] [facility] in [place]. MRI reportedly showed a significant stroke with clot present per medical records. She was reportedly not very engaged with therapies and ultimately was discharged home with her , Tommy. Prior to the stroke, Kristen was highly independent with ADLs and IADLs and was involved in her community. 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 Though pt was diagnosed with global aphasia during hospitalization, her expressive and receptive language skills have improved over the past month per her ?s report. Minimal PMHs in records (vertigo only), though pt denies any neurological conditions or relevant medical history. Stefano currently lives at home with her and is fairly independent with ADLs and has been completing IADLs with assistance/supervision from her as needed. Subjective Observations/Patient Presentation Since initial evaluation, Kristen has been attending language therapy with HUMID SYSTEM OPERATOR at this clinic for 10 visits and has made good progress toward her short term and long-term goals . Throughout the course of therapy, treatment has focused on developing compensatory strategies targeting word retrieval during instances of anomia, modified Semantic Feature Analysis with visual aid, increased utterance length, and family education re: communication strategies. Objective Short Term Goals 1. Patient will implement the compensatory strategy of circumlocution in 80% of opportunities with minimal cueing to repair communication breakdowns in daily conversations. 06/19/24: Continue goal. Pt only occasionally utilizes circumlocution in structured speech tasks and conversation independently. Given min-mod cueing, she is able to utilize circumlocution effectively and retrieve target word. 2. Patient will produce 7 or more content words per utterance (as compared to baseline of 3) through skill and strategy practice in 80% of opportunities during functional conversation in order to enhance communicative effectiveness and confidence. 06/19/24: Continue goal. Pt produces an average of 7+ content words in structured tasks, increasing to 10+ given semantic and phonemic cueing. However, in conversation, she continues to produce short utterances and frequently uses generic/nonspecific terms. She is able to increase utterance length and retrieve target words given cueing to utilize circumlocution and wh- questions, though not independently yet. 3. Patient will correctly name salient object in 80% of opportunities with minimal assistance in order to increase functional word retrieval in daily communication. 06/19/24: Continue goal. Pt is able to name target words in 56-75% of opportunities, increasing to 87-96% given semantic and phonemic cueing as well as SFA visual aid in last two sessions. She is more persistent when trying to retrieve the word and occasionally uses circumlocution independently. Halfway Goals 1. The patient will participate in complex communication of thoughts, ideas, and opinions while utilizing compensatory strategies independnetly when appropriate across three sessions in order to effectively participate in daily activities. 06/19/24: Goal progressing; continue. 2. The patient will demonstrate improved satisfaction with communication (baseline status self-rating +7/10) as a result of activity practice and personalized strategy development in speech therapy. 06/19/24: Goal progressing; continue Treatment Activities Tx activities this reporting period have included: - Training in circumlocution/ description strategy for word finding in everyday conversation - Modified Semantic Feature Analysis (SFA) to target anomia and use of circumlocution for improved word retrieval with visual aids. - Response Elaboration Training (RET) to target verbal expression, content word retrieval, and response length. - Family education re: compensatory strategies for effective communication and graded cueing in conversation. Assessment Patient Response to Treatment Good Rehab Potential Good Impairments Identified Expressive language Progress Towards Goals Good Progress Assessment of Overall Progress Improving Assessment of Improvement As of last data collection date, Kristen was able to name 56% of target words independently , increasing to 96% given cueing reference SFA visual aid and HUMID SYSTEM OPERATOR prompting pt to identify semantic features. With open-ended photo stimuli, pt she was able to form sentences with an average of 7 content words, increasing to an average of 12+ content words with use of wh-questions (ex: who, what, where, when) and semantic/phonemic cueing. Kristen continues to have difficulty utilizing circumlocution/description as well as increased utterance length in unstructured conversation. She would benefit from ongoing reinforcement to promote carryover of skills to more decontextualized, real-life scenarios to enhance her communicative effectiveness. Kristen?s has been highly receptive to compensatory communication strategies that have been recommended as well as to use of graded cueing to support Kristen?s social engagement and independence. Kristen has made good progress and is able to communicate more effectively, not only in ST sessions, but at home and in the community. She will continue to benefit from HUMID SYSTEM OPERATOR services targeting language skills and use trained strategies more in order to enhance her ability to effectively communicate complex thoughts, ideas, opinions, and feelings during functional activities of daily life in a variety of settings and with a variety of communication partners. Reviewed with Patient Goals,Progress Being Made,Home Exercise Program Patient/Caregiver Understanding Excellent Plan Amount of Therapy Recommended 3 Months Frequency of Treatment Once a Week Length of Session 30 Minutes Therapeutic Contents Client Education,Expressive Language Training,Fluency,Home Exercise Program Provided Patient/Caregiver Instruction Home Exercise Program,Plan of Care,Questions/Concerns Therapy Recommendations Continue with Current Program Visit Care Team Role Provider Type Neri Sepulveda MD Family Provider Physician Primary Care Provider Specialty: Family Practice Obstetrics Address: [address] [place] [address], [id number] Email: [email or web address] Almaz Ross MD Attending Provider Physician Referring Provider Specialty: Family Practice Address: [address] [place] [address], [id number] Email: [email or web address]
--- NOTE | 2024-06-26 17:34 | ST.OPTN ---
Visit Care Team Role Provider Type Neri Sepulveda MD Family Provider Physician Primary Care Provider Address: [address] [place] [address], [address] Almaz Ross MD Attending Provider Physician Referring Provider Address: [address] [place] [address], [facility], [place], [address] BUILDER OPERATOR Treatment Note BUILDER OPERATOR Treatment Note Start: 04/10/24 15:40 Freq: Status: Active Protocol: Document 06/26/24 17:21 SS (Rec: 06/26/24 17:34 SS [id number]) Speech Pathology Treatment Note Session Time Visit Start Time 14:30 Visit Stop Time 15:10 Total Visit Minutes 40 Visit Information Visit Number 11 Plan of Care Dates 04/10/24-07/08/24 Insurance Information Medicare Setting Treatment Setting Outpatient Care Visit Type Note Type Treatment Note Next Note Type Next Note Type Treatment Note General Information Patient History Kristen Andres is a 68 year-old female referred to this clinic for assessment for expressive nad receptive language function R frontal lobe CVA. She was hospitalized from through 02/29/2024 at [facility] in [place]. MRI reportedly showed a significant stroke with clot present per medical records. She was reportedly not very engaged with therapies and ultimately was discharged home with her , Tommy. Prior to the stroke, Kristen was highly independent with ADLs and IADLs and was involved in her community. 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 Though pt was diagnosed with global aphasia during hospitalization, her expressive and receptive language skills have improved over the past month per her ?s report. Minimal PMHs in records (vertigo only), though pt denies any neurological conditions or relevant medical history. Stefano currently lives at home with her and is fairly independent with ADLs and has been completing IADLs with assistance/supervision from her as needed. Subjective Observations/Patient Presentation Kristen arrived to the session on time and was accompanied by her , Tommy. She was engaged and motivated to participate in all session activities. Objective Short Term Goals 1. Patient will implement the compensatory strategy of circumlocution in 80% of opportunities with minimal cueing to repair communication breakdowns in daily conversations. 06/19/24: Continue goal. Pt only occasionally utilizes circumlocution in structured speech tasks and conversation independently. Given min-mod cueing, she is able to utilize circumlocution effectively and retrieve target word. 2. Patient will produce 7 or more content words per utterance (as compared to baseline of 3) through skill and strategy practice in 80% of opportunities during functional conversation in order to enhance communicative effectiveness and confidence. 06/19/24: Continue goal. Pt produces an average of 7+ content words in structured tasks, increasing to 10+ given semantic and phonemic cueing. However, in conversation, she continues to produce short utterances and frequently uses generic/nonspecific terms. She is able to increase utterance length and retrieve target words given cueing to utilize circumlocution and wh- questions, though not independently yet. 3. Patient will correctly name salient object in 80% of opportunities with minimal assistance in order to increase functional word retrieval in daily communication. 06/19/24: Continue goal. Pt is able to name target words in 56-75% of opportunities, increasing to 87-96% given semantic and phonemic cueing as well as SFA visual aid in last two sessions. She is more persistent when trying to retrieve the word and occasionally uses circumlocution independently. Director Of Digital Platforms Goals 1. The patient will participate in complex communication of thoughts, ideas, and opinions while utilizing compensatory strategies independnetly when appropriate across three sessions in order to effectively participate in daily activities. 06/19/24: Goal progressing; continue. 2. The patient will demonstrate improved satisfaction with communication (baseline status self-rating +7/10) as a result of activity practice and personalized strategy development in speech therapy. 06/19/24: Goal progressing; continue Treatment Activities Structured naming activity with principles of SFA as needed. Continued use of visual aid for semantic features (e.g., what does it look like? Location/place, what do you use it for? etc) and carrier phrases to scaffold task. Continued to implement circumlocution and graded cueing in conversation when pt demonstrated instances of anomia to promote generalization and carryover. Discussed progress with pt and and provided HEP. Assessment Patient Response to Treatment Good Rehab Potential Good Impairments Identified Expressive language Progress Towards Goals Good Progress Assessment of Overall Progress Improving Assessment of Improvement During naming/description of everyday objects task, pt was able to name 70% of target words independently, increasing to 92% given cueing to reference visual aid and BUILDER OPERATOR prompting pt to identify specific semantic features. Of note, pt was able to produce semantic features independently on multiple occasions and then retrieve word without need for external cueing (e.g., ?I eat those with my burger? for Amharic fries or ?they?re pink and they stand on one leg? for flamingos). In conversation, pt intermittently utilized nonspecific and generic terms during instances of anomia. She had the most difficulty with names of places, but also demonstrated difficulty with common nouns. She benefited from semantic and phonemic cueing to retrieve target words as well as cueing to use circumlocution. BUILDER OPERATOR modeling circumlocution was also effective. She is showing emerging ability to utilize trained strategies to retrieve target words with reduced need for cueing, though frustration/overwhelm and awareness of deficits continue to be barriers at times. Discussed progress with pt and and provided structured and functional daily home practice. Pt?s reports pt has made noticeable progress since initiation of treatment and is now participating more in conversations and describing words she has difficulty naming with minimal cueing from him. Reviewed with Patient Goals,Progress Being Made,Home Exercise Program Patient/Caregiver Understanding Excellent Plan Amount of Therapy Recommended 3 Months Frequency of Treatment Once a Week Length of Session 30 Minutes Therapeutic Contents Client Education,Expressive Language Training,Fluency,Home Exercise Program Provided Patient/Caregiver Instruction Home Exercise Program,Plan of Care,Questions/Concerns Therapy Recommendations Continue with Current Program
--- NOTE | 2024-07-01 17:19 | ST.OPTN ---
Visit Care Team Role Provider Type Neri Sepulveda MD Family Provider Physician Primary Care Provider Address: [address] [place] [address], [id number] Almaz Ross MD Attending Provider Physician Referring Provider Address: [address] [place] [address], [facility], [place], [address] FILM COMPOSER Treatment Note FILM COMPOSER Treatment Note Start: 04/10/24 15:40 Freq: Status: Active Protocol: Document 07/01/24 17:10 SS (Rec: 07/01/24 17:19 SS [id number]) Speech Pathology Treatment Note Session Time Visit Start Time 14:30 Visit Stop Time 15:10 Total Visit Minutes 40 Visit Information Visit Number 12 Plan of Care Dates 04/10/24-07/08/24 Insurance Information Medicare Setting Treatment Setting Outpatient Care Visit Type Note Type Treatment Note Next Note Type Next Note Type Treatment Note General Information Patient History Kristen Andres is a 68 year-old female referred to this clinic for assessment for expressive nad receptive language function R frontal lobe CVA. She was hospitalized from through 02/29/2024 at [facility] in [place]. MRI reportedly showed a significant stroke with clot present per medical records. She was reportedly not very engaged with therapies and ultimately was discharged home with her , Tommy. Prior to the stroke, Kristen was highly independent with ADLs and IADLs and was involved in her community. 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 Though pt was diagnosed with global aphasia during hospitalization, her expressive and receptive language skills have improved over the past month per her ?s report. Minimal PMHs in records (vertigo only), though pt denies any neurological conditions or relevant medical history. Stefano currently lives at home with her and is fairly independent with ADLs and has been completing IADLs with assistance/supervision from her as needed. Subjective Observations/Patient Presentation Kristen arrived to the session on time and was accompanied by her , Tommy. She was engaged and motivated to participate in all session activities. Objective Short Term Goals 1. Patient will implement the compensatory strategy of circumlocution in 80% of opportunities with minimal cueing to repair communication breakdowns in daily conversations. 06/19/24: Continue goal. Pt only occasionally utilizes circumlocution in structured speech tasks and conversation independently. Given min-mod cueing, she is able to utilize circumlocution effectively and retrieve target word. 2. Patient will produce 7 or more content words per utterance (as compared to baseline of 3) through skill and strategy practice in 80% of opportunities during functional conversation in order to enhance communicative effectiveness and confidence. 06/19/24: Continue goal. Pt produces an average of 7+ content words in structured tasks, increasing to 10+ given semantic and phonemic cueing. However, in conversation, she continues to produce short utterances and frequently uses generic/nonspecific terms. She is able to increase utterance length and retrieve target words given cueing to utilize circumlocution and wh- questions, though not independently yet. 3. Patient will correctly name salient object in 80% of opportunities with minimal assistance in order to increase functional word retrieval in daily communication. 06/19/24: Continue goal. Pt is able to name target words in 56-75% of opportunities, increasing to 87-96% given semantic and phonemic cueing as well as SFA visual aid in last two sessions. She is more persistent when trying to retrieve the word and occasionally uses circumlocution independently. Shelf Stocker Goals 1. The patient will participate in complex communication of thoughts, ideas, and opinions while utilizing compensatory strategies independnetly when appropriate across three sessions in order to effectively participate in daily activities. 06/19/24: Goal progressing; continue. 2. The patient will demonstrate improved satisfaction with communication (baseline status self-rating +7/10) as a result of activity practice and personalized strategy development in speech therapy. 06/19/24: Goal progressing; continue Treatment Activities Structured naming activity with principles of SFA as needed. Continued use of visual aid for semantic features (e.g., what does it look like? Location/place, what do you use it for? etc) and carrier phrases to scaffold task. Continued to implement circumlocution and graded cueing in conversation when pt demonstrated instances of anomia to promote generalization and carryover. Discussed progress with pt and and provided HEP. Discussed plan to complete cognitive-communication standardized assessment in next session given ongoing memory concerns. Assessment Patient Response to Treatment Good Rehab Potential Good Impairments Identified Expressive language Progress Towards Goals Good Progress Assessment of Overall Progress Improving Assessment of Improvement During naming/description of everyday objects task, pt was able to name 60% of target words independently, increasing to 100% given cueing to reference visual aid and FILM COMPOSER prompting pt to identify specific semantic features. Pt continues to be able to occasionally produce semantic features and retrieve the word without additional cueing from FILM COMPOSER or . She continues to have difficulty referencing the visual aid independently and benefits from direct semantic and phonemic cueing. In conversation, pt continues to occasionally utilize generic terms, though is more receptive to trying to retrieve the intended word with semantic/phonemic cueing. However, once she begins to describe the target word, she is usually able to retrieve it successfully. Of note, her productions continue to increase in length and complexity and she is more engaged in conversation at home according to her . Discussed progress with pt and and provided structured and functional daily home practice. Plan to complete cognitive- communication standardized assessment next session given ongoing memory concerns reported by pt?s and update POC accordingly. Reviewed with Patient Goals,Progress Being Made,Home Exercise Program Patient/Caregiver Understanding Excellent Plan Amount of Therapy Recommended 3 Months Frequency of Treatment Once a Week Length of Session 30 Minutes Therapeutic Contents Client Education,Expressive Language Training,Fluency,Home Exercise Program Provided Patient/Caregiver Instruction Home Exercise Program,Plan of Care,Questions/Concerns Therapy Recommendations Continue with Current Program
--- NOTE | 2024-07-17 13:16 | ST.OPPOC ---
Physical, Occupational & Speech Therapy [facility] Visit Care Team Role Provider Type Neri Sepulveda MD Family Provider Physician Primary Care Provider Address: [address] [facility], [place], [address] Almaz Ross MD Attending Provider Physician Referring Provider Address: [address] [place] [address] [address], [place], [address] Speech Pathology Plan of Care Plan of Care Dates 07/17/24-10/16/[address] Almaz Ross Patient History Kristen Andres is a 68 year-old female referred to this clinic for assessment for expressive nad receptive language function R frontal lobe CVA. She was hospitalized from 02/26/2024 through at [facility] in [place]. MRI reportedly showed a significant stroke with clot present per medical records. She was reportedly not very engaged with therapies and ultimately was discharged home with her , Tommy. Prior to the stroke, Kristen was highly independent with ADLs and IADLs and was involved in her community. 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 Though pt was diagnosed with global aphasia during hospitalization, her expressive and receptive language skills have improved over the past month per her ?s report. Minimal PMHs in records (vertigo only), though pt denies any neurological conditions or relevant medical history. Pt currently lives at home with her and is fairly independent with ADLs and has been completing IADLs with assistance/supervision from her as needed. Impairments Identified Expressive language Progress Towards Goals Good Progress Short Term Goals 1. Patient will implement the compensatory strategy of circumlocution in 80% of opportunities with minimal cueing to repair communication breakdowns in daily conversations. 06/19/24: Continue goal. Pt only occasionally utilizes circumlocution in structured speech tasks and conversation independently. Given min- mod cueing, she is able to utilize circumlocution effectively and retrieve target word. 2. Patient will produce 7 or more content words per utterance (as compared to baseline of 3) through skill and strategy practice in 80% of opportunities during functional conversation in order to enhance communicative effectiveness and confidence. 06/19/24: Continue goal. Pt produces an average of 7+ content words in structured tasks, increasing to 10+ given semantic and phonemic cueing. However, in conversation, she continues to produce short utterances and frequently uses generic/nonspecific terms. She is able to increase utterance length and retrieve target words given cueing to utilize circumlocution and wh-questions, though not independently yet. 3. Patient will correctly name salient object in 80% of opportunities with minimal assistance in order to increase functional word retrieval in daily communication. 06/19/24: Continue goal. Pt is able to name target words in 56-75% of opportunities, increasing to 87-96% given semantic and phonemic cueing as well as SFA visual aid in last two sessions. She is more persistent when trying to retrieve the word and occasionally uses circumlocution independently. Longterm Goals 1. The patient will participate in complex communication of thoughts, ideas, and opinions while utilizing compensatory strategies independnetly when appropriate across three sessions in order to effectively participate in daily activities. 06/19/24: Goal progressing; continue. 2. The patient will demonstrate improved satisfaction with communication (baseline status self-rating +7/10) as a result of activity practice and personalized strategy development in speech therapy. 06/19/24: Goal progressing; continue Comment: Electronically Signed by: CHICA Callahan 07/17/24 6408 If you are in agreement with this Plan of Care, please return a signed and dated copy. I have reviewed this Plan of Care and certify that the skilled therapy services above are required to meet the patient?s needs. Physician Signature Date Printed Name and Credentials Clinical Instructor Signature Printed Name and Credentials
--- NOTE | 2024-07-17 15:59 | ST.OPTN ---
Visit Care Team Role Provider Type Neri Sepulveda MD Family Provider Physician Primary Care Provider Address: [address] [place] [address], [id number] Almaz Ross MD Attending Provider Physician Referring Provider Address: [address] [place] [address], [facility], [place], [address] RO[address] [employer] CONDU[employer] Treatment Note RO[employer] Treatment Note Start: 04/10/24 15:40 Freq: Status: Active Protocol: Document 07/17/24 15:46 SS (Rec: 07/17/24 15:58 SS Desktop) Speech Pathology Treatment Note Session Time Visit Start Time 14:32 Visit Stop Time 15:10 Total Visit Minutes 38 Visit Information Visit Number 13 Plan of Care Dates 07/17/24-10/16/24 Insurance Information Medicare Setting Treatment Setting Outpatient Care Visit Type Note Type Treatment Note Next Note Type Next Note Type Treatment Note General Information Patient History Kristen Andres is a 68 year-old female referred to this clinic for assessment for expressive nad receptive language function R frontal lobe CVA. She was hospitalized from through 02/29/2024 at [facility] in [place]. MRI reportedly showed a significant stroke with clot present per medical records. She was reportedly not very engaged with therapies and ultimately was discharged home with her , Tommy. Prior to the stroke, Kristen was highly independent with ADLs and IADLs and was involved in her community. 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 Though pt was diagnosed with global aphasia during hospitalization, her expressive and receptive language skills have improved over the past month per her ?s report. Minimal PMHs in records (vertigo only), though pt denies any neurological conditions or relevant medical history. Stefano currently lives at home with her and is fairly independent with ADLs and has been completing IADLs with assistance/supervision from her as needed. Subjective Observations/Patient Presentation Kristen arrived to the session on time and was accompanied by her , Tommy. She was engaged and motivated to participate in all session activities. Objective Short Term Goals 1. Patient will implement the compensatory strategy of circumlocution in 80% of opportunities with minimal cueing to repair communication breakdowns in daily conversations. 06/19/24: Continue goal. Pt only occasionally utilizes circumlocution in structured speech tasks and conversation independently. Given min-mod cueing, she is able to utilize circumlocution effectively and retrieve target word. 2. Patient will produce 7 or more content words per utterance (as compared to baseline of 3) through skill and strategy practice in 80% of opportunities during functional conversation in order to enhance communicative effectiveness and confidence. 06/19/24: Continue goal. Pt produces an average of 7+ content words in structured tasks, increasing to 10+ given semantic and phonemic cueing. However, in conversation, she continues to produce short utterances and frequently uses generic/nonspecific terms. She is able to increase utterance length and retrieve target words given cueing to utilize circumlocution and wh- questions, though not independently yet. 3. Patient will correctly name salient object in 80% of opportunities with minimal assistance in order to increase functional word retrieval in daily communication. 06/19/24: Continue goal. Pt is able to name target words in 56-75% of opportunities, increasing to 87-96% given semantic and phonemic cueing as well as SFA visual aid in last two sessions. She is more persistent when trying to retrieve the word and occasionally uses circumlocution independently. Electric Detector Operator Goals 1. The patient will participate in complex communication of thoughts, ideas, and opinions while utilizing compensatory strategies independnetly when appropriate across three sessions in order to effectively participate in daily activities. 06/19/24: Goal progressing; continue. 2. The patient will demonstrate improved satisfaction with communication (baseline status self-rating +7/10) as a result of activity practice and personalized strategy development in speech therapy. 06/19/24: Goal progressing; continue Treatment Activities Continued structured naming activity with principles of SFA as needed. Continued use of visual aid for semantic features (e.g., what does it look like? Location/place, what do you use it for? etc) and carrier phrases to scaffold task. Continued to implement circumlocution and graded cueing in conversation when pt demonstrated instances of anomia to promote generalization and carryover of trained skills. Discussed progress with pt and and provided HEP. Assessment Patient Response to Treatment Good Rehab Potential Good Impairments Identified Expressive language Progress Towards Goals Good Progress Assessment of Overall Progress Improving Assessment of Improvement RO[employer] CONDUCTOR facilitated discussion re: current language function. Pt ?s reported he continues to notice increased word-retrieval and increased grammatical complexity in conversation. He also expressed that they continue to try to implement trained word-finding strategies during everyday scenarios. During naming/description of everyday objects task, pt was able to name 69% of target words independently, increasing to 95% given cueing to reference visual aid and RO[employer] CONDUCTOR prompting pt to identify specific semantic features. Pt is able to ?cue herself? and produce semantic features and retrieve the word without additional cueing from RO[employer] CONDUCTOR or more often than in prior sessions. In conversation, pt continues to utilize generic terms rather than target words , though she now often recognizes when she is having difficulty with word-retrieval and will attempt to repair it by describing the target word . Provided education re: importance of attempting to retrieve the word by describing it to activate neural networks rather than relying on RO[employer]DUCTOR or providing the word. Pt and expressed understanding. Recommended pt and continue to with practice of trained word- finding strategies, both in structured activities and during opportunities in everyday conversation. They were agreeable to continued practice and implementation. POC updated and sent to PCP as POC had . Reviewed with Patient Goals,Progress Being Made,Home Exercise Program Patient/Caregiver Understanding Excellent Plan Amount of Therapy Recommended 3 Months Frequency of Treatment Once a Week Length of Session 30 Minutes Therapeutic Contents Client Education,Expressive Language Training,Fluency,Home Exercise Program Provided Patient/Caregiver Instruction Home Exercise Program,Plan of Care,Questions/Concerns Therapy Recommendations Continue with Current Program
--- NOTE | 2024-07-23 14:48 | ST.OPDS ---
Visit Care Team Role Provider Type Neir Sepulveda MD Family Provider Physician Primary Care Provider Address: [address] [place] [address], [place], [address] Almaz Ross MD Attending Provider Physician Referring Provider Address: [address] [place] [address], [facility], [place], [address] [employer] TEACHER Treatment Note V[employer] IMP[employer] TEACHER Treatment Note Start: 04/10/24 15:40 Freq: Status: Active Protocol: Document 07/23/24 14:36 SS (Rec: 07/23/24 14:48 SS Desktop) Speech Pathology Treatment Note Visit Information Visit Number 13 Plan of Care Dates 07/17/24-10/16/24 Insurance Information Medicare Setting Treatment Setting Outpatient Care Visit Type Note Type Discharge Summary General Information Patient History Kristen Andres is a 68 year-old female referred to this clinic for assessment for expressive and receptive language function R frontal lobe CVA. She was hospitalized from through 02/29/[address] [facility] in [place]. MRI reportedly showed a significant stroke with clot present per medical records. She was reportedly not very engaged with therapies and ultimately was discharged home with her , Tommy. Prior to the stroke, Kristen was highly independent with ADLs and IADLs and was involved in her community. 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 Though pt was diagnosed with global aphasia during hospitalization, her expressive and receptive language skills have improved over the past month per her ?s report. Minimal PMHs in records (vertigo only), though pt denies any neurological conditions or relevant medical history. Pt currently lives at home with her and is fairly independent with ADLs and has been completing IADLs with assistance/supervision from her as needed. Objective Short Term Goals 1. Patient will implement the compensatory strategy of circumlocution in 80% of opportunities with minimal cueing to repair communication breakdowns in daily conversations. 06/19/24: Continue goal. Pt only occasionally utilizes circumlocution in structured speech tasks and conversation independently. Given min-mod cueing, she is able to utilize circumlocution effectively and retrieve target word. 07/23/24: Discontinue goal. 2. Patient will produce 7 or more content words per utterance (as compared to baseline of 3) through skill and strategy practice in 80% of opportunities during functional conversation in order to enhance communicative effectiveness and confidence. 06/19/24: Continue goal. Pt produces an average of 7+ content words in structured tasks, increasing to 10+ given semantic and phonemic cueing. However, in conversation, she continues to produce short utterances and frequently uses generic/nonspecific terms. She is able to increase utterance length and retrieve target words given cueing to utilize circumlocution and wh- questions, though not independently yet. 07/23/24: Discontinue goal. 3. Patient will correctly name salient object in 80% of opportunities with minimal assistance in order to increase functional word retrieval in daily communication. 06/19/24: Continue goal. Pt is able to name target words in 56-75% of opportunities, increasing to 87-96% given semantic and phonemic cueing as well as SFA visual aid in last two sessions. She is more persistent when trying to retrieve the word and occasionally uses circumlocution independently. 07/23/24: Discontinue goal. Snf Goals 1. The patient will participate in complex communication of thoughts, ideas, and opinions while utilizing compensatory strategies independnetly when appropriate across three sessions in order to effectively participate in daily activities. 06/19/24: Goal progressing; continue. 07/23/24: Discontinue goal. 2. The patient will demonstrate improved satisfaction with communication (baseline status self-rating +7/10) as a result of activity practice and personalized strategy development in speech therapy. 06/19/24: Goal progressing; continue 07/23/24: Discontinue goal. Treatment Activities Kristen has been seen for 13 speech therapy visits addressing aphasia c/b anomia and reduced utterance complexity in the setting of R frontal lobe CVA since the start of care on 07/17/24. She has attended at a frequency of once a week and has been motivated and engaged throughout. Treatment has included structured naming activities with principles of SFA with use of visual aid for semantic features (e.g., what does it look like? Location/ place, what do you use it for? etc) and carrier phrases. Treatment also included implementation of circumlocution and graded cueing in conversation when pt demonstrated instances of anomia to promote generalization and carryover of trained skills. Education re: listener strategies was also provided to pt?s . Assessment Patient Response to Treatment Good Rehab Potential Good Impairments Identified Expressive language Progress Towards Goals Good Progress Assessment of Overall Progress Improving Assessment of Improvement As of last session, pt was able to name 69% of target words independently, increasing to 95% given cueing to reference visual aid and VISION IMPAIRED TEACHER prompting pt to identify specific semantic features during naming/description of everyday objects task. In conversation, she often utilized generic terms rather than target words, though her anosognosia seems to have subsided and she was able to cue herself and produce semantic features and retrieve the word without additional cueing. Frequency/severity of phonemic and semantic paraphasias has also reduced, though not completely. Since the start of care, pt and pt?s endorses improvement in word-finding and overall expressive language use during conversation. Pt and pt?s have been diligent in daily HEP practice. Pt continues to present with mild aphasia c/b frequent instances of anomia and reduced utterance length. Her has also expressed concern re; cognitive function , though this was not addressed in treatment d/t pt preference. The plan is to discharge the pt from speech therapy services per pt request. She would likely benefit from VISION IMPAIRED TEACHER services to further increase her functional language skills and increase her communication effectiveness. Recommend she and request a referral from her PCP if she would like to resume services in the future. Pt discharged at this time. Reviewed with Patient Goals,Progress Being Made,Home Exercise Program Patient/Caregiver Understanding Excellent Plan Amount of Therapy Recommended No Further Therapy Frequency of Treatment No Further Therapy Therapeutic Contents Client Education,Expressive Language Training,Fluency,Home Exercise Program Provided Patient/Caregiver Instruction Home Exercise Program,Plan of Care,Questions/Concerns Therapy Recommendations Discharge to Home Exercise Program,Discharge from Speech Therapy
== END 2024-07-28 13:29 | disposition home or self-care (01) ==
LOC: SP 14:30
PROVIDERS: Family Provider Family Medicine; PCP Family Medicine; Referring Provider Family Medicine; Visit Provider Family Medicine
DX: I63.9 Cerebral infarction, unspecified (principal)
CPT/HCPCS: 92507; 96105